=== PATIENT | male | born 1985 | race Two or more races ===

== ENCOUNTER 2024-03-26 17:28 | Emergency (ER) | payer OTHER, SELFPAY ==
--- NOTE | ~2024-03-26 | CT_ITS ---
EXAMINATION: CT HEAD WITHOUT CONTRAST CLINICAL INFORMATION: Headache. COMPARISON: None available. TECHNIQUE: Contiguous axial imaging was performed from the skull base to vertex without intravenous administration of contrast. This CT examination was performed using dose optimization techniques as appropriate, variously including the following: *Automated exposure control. *Adjustment of mA and/or kV according to patient size (this includes techniques or standardized protocols for targeted exams where dose is matched to indication/reason for exam; i.e. extremities or head). *Use of iterative reconstruction technique. DLP: 614 mGy-cm FINDINGS: There is no evidence of acute intracranial hemorrhage or edematous territorial infarction. Vincent-white matter differentiation is preserved. There is no abnormal attenuation within the brain parenchyma. The ventricles are normal in morphology and size. No evidence for obstructive hydrocephalus. The suprasellar cistern remains widely patent. Normal positioning of the cerebellar tonsils. No abnormal mass effect or midline shift. No extra-axial fluid collections. No acute soft tissue or osseous abnormalities. Mild mucosal thickening of the paranasal sinuses. The mastoid air cells and middle ear cavities are clear. CT/CT head/brain wo IV con IMPRESSION: No evidence of acute intracranial hemorrhage or edematous territorial infarction. Electronically signed by: Min Hamilton DO 03/26/2024 11:09 PM [facility]
[2024-03-26 17:49] VITALS: BP 133/101; PULSE 81; RESP 16; TEMP 36.4; O2SAT 98; BMI 24.3
--- NOTE | 2024-03-26 19:27 | ED.GENADULT ---
HPI - General Adult General Chief complaint: Headache Stated complaint: R side headache Time Seen by Provider: 03/26/24 19:24 Source: patient Limitations: no limitations History of Present Illness HPI narrative: 38-year-old male presents for evaluation of the headache. Patient states for approximately one-week he has been having intermittent, sharp, shooting pain to the temporal regions bilaterally. It has been intermittent. It has been lasting for several seconds 2 minutes and then resolved on its own. He has not tried any medication for this. He denies any vision changes. He does not typically get headaches. No diplopia. No trauma. 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 He does admit to increased stress. Denies any neck or back pain. No fevers or chills. No nausea or vomiting. He is currently asymptomatic. Related Data Previous Rx's ?Medication ?Instructions ?Recorded methocarbamol 750 mg tablet 750 mg PO TID PRN muscle spasm #20 03/26/24 tabs Allergies Allergy/AdvReac Type Severity Reaction Status Date / Time No Known Allergies Allergy Verified 03/26/24 17:50 [No Known Allergies*] Review of Systems Constitutional: Constitutional: Denies chills, Denies fever(s) and Denies headache(s) Eyes: Eyes: Denies change in vision and Denies other (No redness.) ENT: Denies headache(s), Denies nasal congestion, Denies nasal discharge, Denies neck pain and Denies sore throat Musculoskeletal: Musculoskeletal: Denies back pain, Denies muscle weakness, Denies neck pain and Denies numbness Integumentary/Breasts: Skin/Breast: Denies rash Neurologic: Denies headache(s), Denies focal weakness and Denies numbness Psychiatric: Psychiatric: Denies depression [facility] Social History Social History Use of substances other than those prescribed or required for medical reasons: No Advance Directives: No Advance Directives Information Provided: No Do you have a plan to hurt others: No Plan Physical Exam ED Vital Signs: Vital Signs - 24 hr 03/26/24 17:49 03/26/24 20:08 03/26/24 22:01 Temperature 97.6 F 98.9 F 99.0 F Pulse Rate 81 76 92 Respiratory Rate 16 16 16 Blood Pressure 133/101 H 137/86 127/90 H Pulse Oximetry 98 99 99 Oxygen Delivery Method Room Air Room Air Room Air 03/26/24 23:53 Temperature 99.0 F Pulse Rate 92 Respiratory Rate 16 Blood Pressure 127/90 H Pulse Oximetry 99 Oxygen Delivery Method Room Air BMI result Body Mass Index 24.3 Const General: well developed, alert, awake and Physically active Eyes Other: Pupils are equal round and reactive to light. No nystagmus Neck Other: No Brudzinski Resp Auscultation: clear to auscultation bilaterally Cardio Rate: regular rate Rhythm: regular rhythm Neuro General: CN's II-XI intact bilaterally Course Course Course Narrative: CT results returned, no acute process. Patient feels comfortable with discharge plan home. He will trial Robaxin in case this is muscular related. No further questions at this time. Medical Decision Making Medical Decision Making MDM Narrative: 38-year-old male with one-week history of intermittent bitemporal headache. No history of similar symptoms. We will check CT of the brain. Patient is currently asymptomatic. Low suspicion for intracranial bleed. Suspect possible migraine versus musculoskeletal. Differential Diagnosis Differential Diagnoses: The differential diagnosis associated with the presentation includes Intracranial bleed Tension headache Migraine headache Sinusitis, no evidence of infectious symptoms Radiology Impression Discussion of test interpretation with radiology: I have reviewed the radiologist's reading. Radiologist Impression: [address] [address] [address] Scan Report Signed Patient: Hans Quintanilla MR#: [id number] : 1985 Acct:[id number] Age/Sex: 38 / M ADM Date: 03/26/24 Loc: HO.ED Attending Dr: Ordering Physician: Kal Mendiola Date of Service: 03/26/24 Procedure(s): CT head/brain wo IV con Accession Number(s): [id number] cc: Physician,None ; Kal Mendiola~ EXAMINATION: CT HEAD WITHOUT CONTRAST CLINICAL INFORMATION: Headache. COMPARISON: None available. TECHNIQUE: Contiguous axial imaging was performed from the skull base to vertex without intravenous administration of contrast. This CT examination was performed using dose optimization techniques as appropriate, variously including the following: *Automated exposure control. *Adjustment of mA and/or kV according to patient size (this includes techniques or standardized protocols for targeted exams where dose is matched to indication/reason for exam; i.e. extremities or head). *Use of iterative reconstruction technique. DLP: 614 mGy-cm FINDINGS: There is no evidence of acute intracranial hemorrhage or edematous territorial infarction. Vincent-white matter differentiation is preserved. There is no abnormal attenuation within the brain parenchyma. The ventricles are normal in morphology and size. No evidence for obstructive hydrocephalus. The suprasellar cistern remains widely patent. Normal positioning of the cerebellar tonsils. No abnormal mass effect or midline shift. No extra-axial fluid collections. No acute soft tissue or osseous abnormalities. Mild mucosal thickening of the paranasal sinuses. The mastoid air cells and middle ear cavities are clear. CT/CT head/brain wo IV con IMPRESSION: No evidence of acute intracranial hemorrhage or edematous territorial infarction. Electronically signed by: Min Hamilton DO 03/26/2024 11:09 PM [facility] Dictated By: Alexsander Hamilton DO Signed By: <Electronically signed by Alexsander Hamilton DO in OV> 03/26/242308 DD/ 54 TD/TT: 03/26/241954 Stoker E[employer]ctor [employer] Servicer: ALFRED Discharge Plan Discharge Clinical Impression: Tension headache Patient Disposition: Home, Self-Care Instructions: Tension Headache (ED) Additional Instructions: Your CT scan today was normal. Your symptoms could be caused by a tension headache. Robaxin as directed to help with pain and muscle spasm. You may also use Tylenol or ibuprofen as directed, available [id number]. Follow-up with your primary care provider. Call this week to schedule a follow-up appointment. Return to the emergency department if you have any worsening of symptoms, or any concerns. Get well soon! Prescriptions: New methocarbamol 750 mg tablet 750 mg PO TID PRN (Reason: muscle spasm) Qty: 20 0RF Interventions: ED Discharge Assessment Last Done: 03/26/24 23:53 Discharge Date/Time: 03/26/24 23:53 Print Language: Sinhala
[2024-03-26 20:08] VITALS: BP 137/86; PULSE 76; RESP 16; TEMP 37.2; O2SAT 99
[2024-03-26 22:01] VITALS: BP 127/90; PULSE 92; RESP 16; TEMP 37.2; O2SAT 99
[2024-03-26 23:53] VITALS: BP 127/90; PULSE 92; RESP 16; TEMP 37.2; O2SAT 99
== END 2024-03-26 23:53 | disposition home or self-care (01) ==
PROVIDERS: Emergency Provider Internal Medicine
DX: G44.209 Tension-type headache, unspecified, not intractable (principal)
CPT/HCPCS: 70450; 99284

== ENCOUNTER 2024-06-24 11:57 | Outpatient (REF) | payer OTHER, SELFPAY ==
[2024-06-24 14:03] LABS: Influenza A PCR NEGATIVE (Negative); Influenza B PCR NEGATIVE (Negative); Resp Syncy Virus RNA Qual PCR NEGATIVE (Negative); SARS COV2 PCR INHOUSE NEGATIVE (Negative)
== END 2024-06-24 11:58 | disposition home or self-care (01) ==
LOC: HO.LAB 11:57
PROVIDERS: Visit Provider Nurse Practitioner Family
DX: R05.2 Subacute cough (principal); J06.9 Acute upper respiratory infection, unspecified
CPT/HCPCS: 0241U

== ENCOUNTER 2024-06-24 11:57 | Outpatient (AMB) | payer OTHER, SELFPAY ==
--- NOTE | 2024-06-24 11:59 | AM.OFFWIN_ITS ---
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 Patient Tobacco Use Status: Never used Tobacco Allergies No Known Allergies [No Known Allergies*] Allergy (Verified 06/24/24 12:07) Do you need a note to return to daycare/school/sports/work: No HPI HPI Comments History of Present Illness Details 38 y/o male patient who presents to the walk in clinic with c/o URI symptoms x 2 weeks. Reports Cough, headaches, chills and back pain. [facility] Medical History (Updated 06/24/24 @ 12:24 by Malu Huang NP) Cough Acute respiratory disease Social History Patient Tobacco Use Status: Never used Tobacco Review of Systems Const All systems reviewed & are unremarkable except as noted in HPI and below Physical Exam Vital Signs: Last Vital Signs Temp 99.3 F 06/24/24 12:04 Pulse 116 H 06/24/24 12:04 BP 120/90 H 06/24/24 12:04 Pulse Ox 98 06/24/24 12:04 Oxygen Delivery Method Room Air 06/24/24 12:04 Const General: cooperative and no acute distress Orientation/consciousness: patient oriented x3 HEENT Head: Yes normocephalic Ears: external ears normal and TM abnormal with fluid behind the TM bilateral Face and sinus: Yes sinuses nontender Mouth: moist mucous membranes Throat: Yes uvula midline Resp Effort & Inspection: normal respiratory effort, able to speak in complete sentences and Actively coughing Auscultation: clear to auscultation bilaterally, no crackles, no rales, no rhonchi and no wheezes Cardio Heart sounds: S1 normal heart sound present and S2 normal heart sound present Neuro General: patient oriented x3 Assessment & Plan Assessment & Plan (1) Acute respiratory disease: Code(s): J06.9 - Acute upper respiratory infection, unspecified Plan: Ordered SARs. Ordered Abx Acetaminophen for pain relief (2) Cough: Code(s): R05.9 - Cough, unspecified Qualifiers: Cough type: subacute Qualified Code(s): R05.2 - Subacute cough Plan: Ordered SARs. Ordered Abx Acetaminophen for pain relief Orders: Orders SARS-CoV2/FLU/RSV Today J06.9 - Acute upper respiratory infection, unspecified Medications: New azithromycin 500 mg PO DAILY 3 days 3 tabs 0RF R05.9 - Cough, unspecified benzonatate 100 mg PO TID 90 caps 0RF cough R05.9 - Cough, unspecified Discontinued methocarbamol Discontinued Reason: Patient Completed Course 750 mg PO TID PRN 20 tabs 0RF muscle spasm Coding Level of Care Code Est Pt Level 4 (23336) Diagnoses Acute respiratory disease J06.9 Subacute cough R05.2 Cough type: subacute Time Spent (min) 20
[2024-06-24 12:04] VITALS: BP 120/90; PULSE 116; TEMP 37.4; O2SAT 98
--- OUTSIDE RECORDS SUMMARY | 2024-06-24 13:05 | XMS_ITS | Clinical Summary ---
Author Organization [facility] Address [address] [place] [address] Care Team Providers Care Pattern Stamper Name Role Phone Unavailable Primary Care Provider Unavailabl e Source Comments PLEASE NOTE, if this patient is a minor, it may be UNLAWFUL to discuss sensitive information that is contained in these records (such as FAMILY PLANNING, MENTAL HEALTH or SUBSTANCE ABUSE) with the minor patient's parent or other person without the patient's specific authorization.[facility] Immunizations Name Administration Dates Next Due PFIZER COVID VACCINE, PURPLE CAP, 12+ 10/05/2020 ,09/18/2020 Social History Tobacco Use Types Packs/Day Years Used Date Smoking Tobacco: Never Assessed Social Connections Answer Date Recorded Connectedness 0 01/15/2024 Financial Resource Strain Answer Date R ecorded Financial Resource Strain 0 2020 Stress Answer Date Recorded Stress 0 09/18/2020 Physical Activity Answer Date Recorded Physical Activity 0 09/18/2020 Food Insecurity Answer Date Recorded Food 0 01/29/2024 Transportation Needs Answer Date Record ed Transportation 0 09/18/2020 Housing Stability Answer Date Recorded Housing 0 09/18/2020 Safety and Environment Answer Date James rded Safety 0 09/18/2020 Utilities Answer Date Recorded Utilities 0 09/18/2020 Employment Answer Date Recorded Stress 0 01/15/2024 Sex and Gender Information Value Date Recorded Sex Assigned at Male 10/10/2020 9:43 AM PDT Legal Sex Male 12:04 PM PDT Gender Identity Male 10/10/2020 9:43 AM PDT Sexual Orientation Straight 10/10/2020 9: 43 AM PDT Plan of Treatment Health Maintenance Due Date Last Done Comments Diabetes Screening 1985 Hepatitis C Screening 1985 Tobacco Screening 1985 HIV Screening 12/22/2002 Annual Preventive Care Visit 12/22/2005 Hypertension Screening (#1) 12/22/2005 Imm-DTaP/Tdap/Td (1 - Tdap) 12/22/2006 Imm-Hepatitis B (1 of 3 - 19 + 3-dose series) 12/22/2006 Alcohol and Drug Screen 05/05/2023 Depression Annual Screen 05/05/2023 [id number] (3 - 2023- season) 01/04/202410/05/ 021, 09/18/2020 Imm-Influenza (#1) 2024 Insurance [facility] ([facility]) Member Subscriber Plan / Payer (Ef fective 2018-Present) Name:Hans Quintanilla Relation to Subscriber:Self Name:Hans Quintanilla Payer ID:[id number] Group ID:Not on file Type:[employer] Address: [address] [place] [address]
== END 2024-06-24 12:58 | disposition home or self-care (01) ==
PROVIDERS: Visit Provider Nurse Practitioner Family
DX: J06.9 Acute upper respiratory infection, unspecified (principal); R05.2 Subacute cough